=== PATIENT | female | born 1930 | race Caucasian/White ===

== ENCOUNTER → 2016-11-19 | Outpatient (CLI) | payer OTHER, BC ==
[~2016-11-19] MED LIST: ADULT LOW DOSE81 M1 PO; ARICEPT10 MG PO; ASPIRIN81 M1 PO; CELEXA40 MG PO; COZAAR25 MG PO; CRANBERRY500 MG PO; DURAGESIC25 MCG TD; FLEXERIL5 MG PO; HYDROCODONE-CH473 ML; METOCLOPRAMIDE H5 MG PO; MULTIVITAMIN1 EAC1 PO; NAMENDA5 MG PO; NEURONTIN100 MG PO; NORVASC5 MG PO; OCUVITE ADULT1 EACH; OCUVITE PRESER1 EACH PO; PLETAL100 MG PO; POLYETHYLENE GL17 GM PO; PRAVACHOL40 MG PO; PRAVASTATIN SOD20 MG PO; PROCHLORPERAZIN10 MG PO; PROMETHAZI6.25 MG/5; RISPERDAL0.5 MG PO; SENIOR VITAMIN; SENNA S TABLET1 EACH PO; SEPTRA DS TABL1 EACH PO; SEROQUEL12.5 MG PO; SPIRONOLACT/HC1 EACH PO; TRAZODONE HCL50 MG PO; VICODIN,LORT1 TABLET PO; VITAMIN D2000 INTUN PO; VITAMIN D31000 UNIT PO
== END ==
LOC: RAD 10:00
DX: K81.9 Cholecystitis, unspecified (principal); K80.20 Calculus of gallbladder without cholecystitis without obstruction; Z93.4 Other artificial openings of gastrointestinal tract status
CPT/HCPCS: 74160

== ENCOUNTER 2017-09-17 16:44 | Emergency (ER) | payer OTHER, BC ==
[~2017-09-17] VITALS: Ht 157.5 cm; Wt 45.6 kg
[2017-09-17 23:39] VITALS: BP 138/55
== END 2017-09-17 23:39 | disposition home or self-care (01) ==
LOC: EME 16:44
DX: S00.93XA Contusion of unspecified part of head, initial encounter (principal); S83.91XA Sprain of unspecified site of right knee, initial encounter; W19.XXXA Unspecified fall, initial encounter; Y92.129 Unspecified place in nursing home as the place of occurrence of the external cause; F02.80 Dementia in other diseases classified elsewhere, unspecified severity, without behavioral disturbance, psychotic disturbance, mood disturbance, and anxiety; G30.9 Alzheimer's disease, unspecified; E78.5 Hyperlipidemia, unspecified; I10 Essential (primary) hypertension; F32.9 Major depressive disorder, single episode, unspecified; Z85.828 Personal history of other malignant neoplasm of skin; Z87.891 Personal history of nicotine dependence
CPT/HCPCS: 70450; 72125; 73564; 99281; 99285

== ENCOUNTER 2017-12-14 20:08 | Emergency (ER) | payer OTHER, BC ==
[~2017-12-14] VITALS: Ht 144.8 cm; Wt 57.2 kg
[2017-12-14 21:38] LABS: HEMATOCRIT 32.5 % (36.0-46.0); HEMOGLOBIN 10.7 G/DL (11.9-15.5); MCH 31.9 PG (29.0-34.0); MCHC 32.9 G/DL (30.0-36.0); PLATELET COUNT 185 K/uL (156-360); RBC DIS.WIDTH-CV 12.5 % (11.8-14.6); RBC DIS.WIDTH-SD 44.4 % (39-53); RED BLOOD COUNT 3.35 M/uL (3.80-5.20)
[2017-12-14 21:48] LABS: ALBUMIN 3.4 g/dL (3.2-4.8); CHLORIDE 106 mEq/L (99-109); POTASSIUM 4.5 mEq/L (3.7-5.4); SODIUM 141 mEq/L (136-147)
[2017-12-14 21:51] LABS: GLUCOSE 113 mg/dL (70-99); TOTAL PROTEIN 6.1 g/dL (6.4-8.3)
[2017-12-14 21:53] LABS: TOTAL BILIRUBIN 0.3 mg/dL (0.0-1.0)
[2017-12-14 21:54] LABS: ALKALINE PHOSPHATASE 104 IU/L (3-129); CREATININE 1.3 mg/dL (0.6-1.3); GFR ESTIMATE (CALCULATED) 41 mL/min/
[2017-12-14 21:55] LABS: UREA NITROGEN (BUN) 24 mg/dL (9-23)
[2017-12-14 21:56] LABS: AST (GOT) 14 IU/L (2-34)
[2017-12-14 21:57] LABS: ALT (GPT) 7 IU/L (3-49)
[2017-12-14 21:58] LABS: LIPASE 33 U/L (1.0-51.0)
[2017-12-14 21:59] LABS: TROP-I INTERPRETATION NEGATIVE; TROPONIN-I < 0.01 ng/mL (0.0-0.30)
[2017-12-14 23:01] LABS: APPEARANCE CLEAR ((CLEAR)); BILIRUBIN NEGATIVE; BLOOD NEGATIVE; COLOR YELLOW ((YELLOW)); GLUCOSE (STRIP) NEGATIVE; KETONES NEGATIVE; LEUKOCYTES TRACE; NITRITE NEGATIVE; PROTEIN (STRIP) NEGATIVE; SPECIFIC GRAVITY 1.013 (1.000-1.030); UROBILINOGEN 0.2 MG/DL (0.2-1.0)
[2017-12-14 23:08] LABS: BACTERIA NONE SEEN /HPF; EPITHELIAL CELLS RARE /HPF; MUCUS TRACE /LPF; RED BLOOD CELLS 0-5 /HPF (0-5); UCUL ADDED? NO; WHITE BLOOD CELLS 0-5 /HPF (0-5)
[2017-12-14 23:57] VITALS: BP 143/78
== END 2017-12-15 | disposition home or self-care (01) ==
LOC: EME 20:08
PROVIDERS: Physician Assistant
PROC: 3E0234Z Introduction of Serum, Toxoid and Vaccine into Muscle, Percutaneous Approach (ICD-10-PCS; principal; 2017-12-14)
DX: S51.011A Laceration without foreign body of right elbow, initial encounter (principal); S00.03XA Contusion of scalp, initial encounter; S70.02XA Contusion of left hip, initial encounter; S40.012A Contusion of left shoulder, initial encounter; S50.01XA Contusion of right elbow, initial encounter; Z23 Encounter for immunization; W19.XXXA Unspecified fall, initial encounter; Y92.099 Unspecified place in other non-institutional residence as the place of occurrence of the external cause; F02.80 Dementia in other diseases classified elsewhere, unspecified severity, without behavioral disturbance, psychotic disturbance, mood disturbance, and anxiety; G30.9 Alzheimer's disease, unspecified; Z79.82 Long term (current) use of aspirin; I10 Essential (primary) hypertension; E78.5 Hyperlipidemia, unspecified; F32.9 Major depressive disorder, single episode, unspecified; Z85.828 Personal history of other malignant neoplasm of skin; Z87.891 Personal history of nicotine dependence
CPT/HCPCS: 70450; 71046; 72125; 73030; 73080; 73502; 80053; 81003; 83690; 84484; 85027; 93005; 99281; 99285

== ENCOUNTER 2018-01-25 05:45 | Emergency (ER) | payer OTHER, BC ==
[~2018-01-25] VITALS: Ht 160 cm; Wt 60.6 kg
[2018-01-25 09:37] LABS: APPEARANCE SL.HAZY ((CLEAR)); BILIRUBIN NEGATIVE; BLOOD NEGATIVE; COLOR YELLOW ((YELLOW)); GLUCOSE (STRIP) NEGATIVE; KETONES NEGATIVE; LEUKOCYTES MODERATE; NITRITE POSITIVE; PROTEIN (STRIP) NEGATIVE; SPECIFIC GRAVITY 1.014 (1.000-1.030); UROBILINOGEN 0.2 MG/DL (0.2-1.0)
[2018-01-25 09:52] LABS: BACTERIA 3+ /HPF; EPITHELIAL CELLS RARE /HPF; MUCUS 4+ /LPF; RED BLOOD CELLS 0-5 /HPF (0-5); UCUL ADDED? YES; WHITE BLOOD CELLS 30-40 /HPF (0-5)
[2018-01-25] MEDS ORDERED: MACROBID100 MG PO (12:14)
[2018-01-25 13:17] VITALS: BP 131/50
== END 2018-01-25 13:39 | disposition home or self-care (01) ==
LOC: EME → EDBD 05:45 → EME 05:45
PROVIDERS: Emergency Medicine
DX: N39.0 Urinary tract infection, site not specified (principal); S00.83XA Contusion of other part of head, initial encounter; W06.XXXA Fall from bed, initial encounter; Y92.122 Bedroom in nursing home as the place of occurrence of the external cause; G30.9 Alzheimer's disease, unspecified; F02.80 Dementia in other diseases classified elsewhere, unspecified severity, without behavioral disturbance, psychotic disturbance, mood disturbance, and anxiety; I10 Essential (primary) hypertension; E78.5 Hyperlipidemia, unspecified; F32.9 Major depressive disorder, single episode, unspecified; Z85.828 Personal history of other malignant neoplasm of skin; Z87.891 Personal history of nicotine dependence; Z79.82 Long term (current) use of aspirin
CPT/HCPCS: 70450; 81003; 87077; 87086; 87186; 99281; 99284

== ENCOUNTER 2018-03-13 18:58 | Emergency (ER) | payer OTHER, BC ==
[~2018-03-13] VITALS: Ht 147.3 cm; Wt 63.1 kg
[~2018-03-13 18:58] MED LIST changes: +MACROBID100 MG PO
[2018-03-13 22:00] VITALS: BP 143/50
== END 2018-03-13 23:12 | disposition home or self-care (01) ==
LOC: EME 18:58
DX: S00.93XA Contusion of unspecified part of head, initial encounter (principal); W18.30XA Fall on same level, unspecified, initial encounter; Y92.091 Bathroom in other non-institutional residence as the place of occurrence of the external cause; I10 Essential (primary) hypertension; E78.5 Hyperlipidemia, unspecified; G30.9 Alzheimer's disease, unspecified; F02.80 Dementia in other diseases classified elsewhere, unspecified severity, without behavioral disturbance, psychotic disturbance, mood disturbance, and anxiety; H35.30 Unspecified macular degeneration; F32.9 Major depressive disorder, single episode, unspecified; Z79.82 Long term (current) use of aspirin; Z87.891 Personal history of nicotine dependence; Z85.828 Personal history of other malignant neoplasm of skin; Z91.013 Allergy to seafood
CPT/HCPCS: 70450; 99281; 99284